=== PATIENT | female | born 1995 | race American Indian/Alaskan Native ===

== ENCOUNTER 2020-07-02 19:39 | Emergency (ER) | payer SELFPAY ==
[2020-07-02 19:45] VITALS: BP 133/71
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
== END 2020-07-02 21:10 | disposition home or self-care (01) ==
LOC: ED 19:39
DX: S29.012A Strain of muscle and tendon of back wall of thorax, initial encounter (principal); S46.812A Strain of other muscles, fascia and tendons at shoulder and upper arm level, left arm, initial encounter; R51.9 Headache, unspecified; F17.200 Nicotine dependence, unspecified, uncomplicated; Z79.899 Other long term (current) drug therapy; V49.49XA Driver injured in collision with other motor vehicles in traffic accident, initial encounter; Y93.89 Activity, other specified; Y92.488 Other paved roadways as the place of occurrence of the external cause; Y99.8 Other external cause status
CPT/HCPCS: 99282